=== PATIENT | male | born 1950 | race Caucasian/White ===

== ENCOUNTER 2022-05-19 07:09 | Day surgery (SDC) | payer OTHER ==
[2022-05-12 14:31] LABS: BASOPHILS % (AUTO) 0.5 % (0-1); EOSINOPHILS # (AUTO) 0.7 X10'3 (0-0.9); LYMPHOCYTES # (AUTO) 0.8 X10'3 (1.1-4.8); LYMPHOCYTES % (AUTO) 12.3 % (21-51); MEAN CORPUSCULAR HEMOGLOBIN 31.4 PG (27.0-31.0); MEAN CORPUSCULAR HGB CONC 34.1 g/dL (33.0-36.5); MEAN PLATELET VOLUME 8.1 FL (7.4-10.4); MONOCYTES # (AUTO) 0.6 X10'3 (0-0.9); MONOCYTES % (AUTO) 9.3 % (2-12); NEUTROPHILS # (AUTO) 4.4 X10'3 (1.8-7.7); NEUTROPHILS % (AUTO) 66.9 % (42-75); PRE OP HEMATOCRIT 40.3 % (42.0-52.0); PRE OP HEMOGLOBIN 13.8 g/dL (14.0-17.9); PRE OP PLATELET COUNT 245 X10'3 (140-440); RED BLOOD COUNT 4.38 X10'6 (4.70-6.10); RED CELL DISTRIBUTION WIDTH 14.3 % (11.5-14.5)
[2022-05-12 14:41] LABS: ALBUMIN 4.1 G/DL (3.4-5.0); ALBUMIN/GLOBULIN RATIO 1.3 (1.1-1.5); ALKALINE PHOSPHATASE 63 IU/L (46-116); BLOOD UREA NITROGEN 15 MG/DL (7-18); BUN/CREATININE RATIO 17.2 (5.4-32.0); CALCIUM 9.3 MG/DL (8.5-10.1); CHLORIDE 105 MMOL/L (99-107); CREATININE 0.87 MG/DL (0.60-1.10); PRE OP ALT 34 U/L (30-65); PRE OP ANION GAP 8 (8-16); PRE OP AST 20 U/L (10-37); PRE OP BILIRUB, TOTAL 0.4 MG/DL (0.0-1.0); PRE OP GLUCOSE 129 MG/DL (70-104); PRE OP POTASSIUM 3.8 MMOL/L (3.4-5.1); PRE OP SODIUM 140 MMOL/L (135-145); TOTAL CARBON DIOXIDE 26.7 MMOL/L (24-32); TOTAL PROTEIN 7.3 G/DL (6.4-8.2); eGFR 87 ML/MIN
[2022-05-19] VITALS (14 sets, daily range): BP systolic 140–165; BP diastolic 75–96
[~2022-05-19] VITALS: Ht 177.8 cm; Wt 94.7 kg
[~2022-05-19 07:09] MED LIST: ALB0.5UD IH; ASPI-1265 PO; ATOR20TA PO; CHOL50004 PO; FLUT1BLS14 IH; LOSA50TA64 PO; MAGN200T8 PO; MELO-102 PO; MONT-40 PO; albuterol 2.5 MG/3 ML nebule NEB ONE; ceFAZolin inj. 2,000 MG in dextrose 5%-water 100 ML IV ONE; famotidine 20mg tablet PO ONE; ringers solution, lacted 1,000 ML IV SCH
[2022-05-19] MEDS ORDERED: BUPIVAcaine/PF 5 mg/ml 10ml ONE (08:49)
[2022-05-19] MEDS ORDERED: sevoflurane 250ml liquid IH ONE (09:20)
[2022-05-19] MEDS ORDERED: fentaNYL/PF 50MCG/1 ML 2ML syringe ONE (09:26)
[2022-05-19] MEDS ORDERED: midazolam 1 mg/ML 2ml injection ONE (09:26)
[2022-05-19] MEDS ORDERED: propofol inj 20 ML IV ONE (09:36)
[2022-05-19] MEDS ORDERED: LIDOcaine 2% (20mg/ml) 5ml vial ONE (09:36)
[2022-05-19] MEDS ORDERED: dexamethasone sod phosphate 4mg/ml inj. ONE (09:37)
[2022-05-19] MEDS ORDERED: ondansetron/PF 4mg/2ml inj ONE (09:41)
[2022-05-19] MEDS ORDERED: morphine 2 MG/ML inj. syringe IV PRN (09:55)
[2022-05-19] MEDS ORDERED: meperidine/PF 25mg/ml syringe IV PRN ×2 (09:55)
[2022-05-19] MEDS ORDERED: ringers solution, lacted 1,000 ML IV SCH (09:55)
[2022-05-19] MEDS ORDERED: ondansetron/PF 4mg/2ml inj IV PRN (09:55)
[2022-05-19] MEDS ORDERED: proCHLORperazine 10 MG/2 ml inj IV PRN (09:55)
[2022-05-19] MEDS ORDERED: morphine 4 MG/ML inj SYRINge IV PRN (09:55)
[2022-05-19] MEDS ORDERED: ketorolac trometh. 30mg/ml inj. ONE (10:11)
--- NOTE | 2022-05-19 10:22 | NUR ---
Received from OR via [facility], accompanied by Anesthesiologist DR ACHARYA and report given by Anesthesiolgist. 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 PT PLACED ON BEDSIDE MONITOR, VSS. PT IN SB WITH RATE IN HIGH 50'S. PT RECEIVING 8L O2 TO MASK AND TOLERATING WELL, O2 SAT > 96%. WILL TITRATE DOWN PT TOLERATES. PT HAS DRSG TO MID ABD CONSITING OF JUAN MANUEL WITH MEDIPORE TAPE. ABD BINDER IS IN PLACE AND ALL ARE CDI. PT HAS 20G PIV TO LEFT AC WITH LR INSUFING ORDERED. PT DENIES PAIN AT THIS TIME. WILL CONTINUE TO MONITOR.
[2022-05-19] MEDS: meperidine/PF 25mg/ml syringe IV PRN ×2 (11:22→11:42)
--- NOTE | 2022-05-19 12:18 | NUR ---
ALL DISCHARGE CRITERIA HAS BEEN MET. VSS, PAIN AT A TOLERABLE LEVEL, ABLE TO SAFELY AMBULATE AND TRANSFER SELF. IV TAKEN OUT WITHOUT ANY COMPLICATIONS. ALL DISCHARGE INSTRUCTIONS COVERED WITH PATIENT AND ALL QUESTIONS ANSWERED. PATIENT TAKEN OUT VIA WHEELCHAIR TO PERSONAL VEHICLE WHERE FAMILY/FRIEND DROVE PATIENT HOME.
== END 2022-05-19 12:15 | disposition home or self-care (01) ==
LOC: PAS 07:09
PROVIDERS: ATTEND Surgery
DX: K42.9 Umbilical hernia without obstruction or gangrene (principal); Z79.899 Other long term (current) drug therapy; Z90.49 Acquired absence of other specified parts of digestive tract; Z98.890 Other specified postprocedural states; Z87.891 Personal history of nicotine dependence; Z86.19 Personal history of other infectious and parasitic diseases
CPT/HCPCS: 36415; 49585; 80053; 82948; 85025; 87811; J0690; J1100; J1885; J2175; J2250; J2405; J2704; J3010; J3490; J7030; J7060; J7120; Z7506; Z7512; A4215; A4618; A6449; A7000